=== PATIENT | female | born 1970 | race Caucasian/White ===

== ENCOUNTER 2017-04-29 11:13 | Day surgery (SDC) | payer OTHER ==
[2017-04-23 08:36] VITALS: BMI 21.5
[~2017-04-29 11:13] MED LIST: DEXAMETHASONE SOD PHOSPHATE 10 MG/ML 1 ML VIAL IV ONE; HYDROmorphone 1 MG/ML 1 ML SYRINGE IVP PRN; LACTATED RINGERS 1,000 ML IV SCH; LIDOCAINE 1% 20 ML VIAL (10MG/ML) FOR IV START INTRADERMA PRN; MIDAZOLAM 2 MG/2 ML VIAL IV PRN; ONDANSETRON 4 MG/2 ML VIAL IVP ONE; Pre Op ABX Message 1 EACH MISC MISCELLANE ONE; SCOPOLAMINE 1.5MG/72HR PATCH TRANSDERM ONE
[2017-04-29 11:50] VITALS: RESP 16; TEMP 99.2
[2017-04-29] MEDS ORDERED: PROPOFOL 10 MG/ML 20 ML VIAL IV ONE (12:56)
[2017-04-29] MEDS ORDERED: MIDAZOLAM 2 MG/2 ML VIAL ONE (12:56)
[2017-04-29] MEDS ORDERED: fentaNYL (PF) 50 MCG/ML 2 ML AMP ONE (12:56)
[2017-04-29] MEDS ORDERED: BUPIVACAINE (PF) 0.5% 30 ML VIAL SQ ONE (13:03)
[2017-04-29] MEDS ORDERED: LIDOCAINE 2% INJ 20 MG/ML SQ ONE (13:03)
[2017-04-29 14:06] VITALS: BP 113/76; PULSE 53
--- NOTE | 2017-05-01 10:56 | OP ---
DATE OF SURGERY: 04/29/17 PREOPERATIVE DIAGNOSIS: Right carpal tunnel syndrome. POSTOPERATIVE DIAGNOSIS: Right carpal tunnel syndrome. OPERATION: Open carpal tunnel release. DESCRIPTION OF PROCEDURE: The patient was taken to the Operative suite where a sedation was administered by the Department of Anesthesia. I then performed a local injection along the line of the incision with a combination of Marcaine and Xylocaine both without Epinephrine. The hand was then prepped and draped in the usual manner. The arm was elevated , exsanguinated and the cuff was inflated to 250 mm of mercury. A longitudinal incision was made along the ring finger ray distal to the wrist crease. Dissection was taken through the skin and subcutaneous tissue, initially sharp through the skin and then blunt though the subcutaneous tissue to ensure protection of any potential terminal transverse branches of the palmar cutaneous nerve. The palmar fascia was then incised under direct vision longitudinally exposing the transverse carpal ligament. The transverse carpal ligament also was incised under direct vision. The dissection was then continued proximally beneath the skin under direct vision to release the distal forearm fascia. The median nerve was then reflected free of tenosynovium to ensure no adhesions. The tourniquet was then released. The wound was then irrigated and the skin was closed with a running 5-0 Nylon suture. A soft bulky dressing was applied including a volar plaster splint holding the wrist in a neutral slightly extended position. The patient was taken to the Recovery Room in satisfactory condition. KENROY
== END 2017-04-29 14:29 | disposition home or self-care (01) ==
LOC: OR 11:13
PROVIDERS: ATTEND Orthopaedic Surgery Hand Surgery
DX: G56.01 Carpal tunnel syndrome, right upper limb (principal); F17.200 Nicotine dependence, unspecified, uncomplicated; F32.9 Major depressive disorder, single episode, unspecified; Z79.899 Other long term (current) drug therapy; Z79.1 Long term (current) use of non-steroidal anti-inflammatories (NSAID)
CPT/HCPCS: 81025; 64721; J2001; J2250; J1100; J2405; J3010; J2704

== ENCOUNTER 2018-08-23 08:55 | Emergency (ER) | payer OTHER ==
[2018-08-23 09:00] VITALS: BP 136/85; PULSE 89; RESP 16; TEMP 98.2
--- NOTE | 2018-08-23 09:45 | ED ---
General Adult HPI - General Chief complaint: Extremity Injury, Upper Stated complaint: pain & bump on hand Time Seen by Provider: 08/23/18 09:03 Source: patient, RN notes reviewed Mode of arrival: ambulatory Limitations: no limitations - History of Present Illness Initial comments: Patient 47-year-old female presented to the emergency room today with a chief complaint of injury to the left index finger. 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 She states she's also noticed that there seems to be a bump to the posterior aspect of the left wrist. States is her is nontender. She denies any tenderness. She's states she is able to passively flex at the PIP joint but she is unable to hold it there. She states she cannot make a fist. Patient denies any other complaints or symptoms. Patient denies any recent fever, chills, shortness of breath, chest pain, back pain, abdominal pain, nausea or vomiting, numbness or tingling , headache, visual change, or any other complaint. - Related Data Home Medications Medication Instructions Recorded Confirmed ALPRAZolam [Xanax] 0.25 mg PO DAILY PRN 04/23/17 04/29/17 PARoxetine [Paxil] 20 mg PO DAILY 04/23/17 04/29/17 Allergies Allergy/AdvReac Type Severity Reaction Status Date / Time No Known Allergies Allergy Verified 08/23/18 09:00 Review of Systems ROS Statement: Those systems with pertinent positive or pertinent negative responses have been documented in the HPI. ROS Other: All systems not noted in ROS Statement are negative. Past Medical History Past Medical History: No Reported History History of Any Multi-Drug Resistant Organisms: None Reported Past Surgical History: Tonsillectomy Past Anesthesia/Blood Transfusion Reactions: No Reported Reaction Past Psychological History: Anxiety, Depression, Panic Disorder Smoking Status: Current every day smoker Past Alcohol Use History: None Reported Past Drug Use History: Marijuana - Past Family History Father Family Medical History: Cancer Additional Family Medical History / Comment(s): prostate General Exam - General Exam Comments Initial Comments: General: The patient is awake and alert, in no distress, and does not appear acutely ill. Neck: The neck is supple, there is no tenderness or JVD. Musculoskeletal: Patient does have slight flexion down at the DIP joint of the second digit of the left hand. Patient is unable to flex at the PIP joint. She does have passive range of motion in this area. Sensations are intact. Pulses plus. There is mild swelling seen at the distal radius. No bony tenderness. Full range of motion of the wrist, elbow. Neurological: A&O x 3. CN II-XII intact, There are no obvious motor or sensory deficits. Coordination appears grossly intact. Speech is normal. Skin: Skin is warm and dry and no rashes or lesions are noted. Psychiatric: Normal mood and affect. Limitations: no limitations Course Vital Signs 08/23/18 08:57 Temperature 98.2 F Pulse Rate 89 Respiratory 16 Rate Blood Pressure 136/85 O2 Sat by Pulse 99 Oximetry Medical Decision Making - Medical Decision Making Patient has been splinted in a finger splint in extension. Patient is advised to leave the splint in place. Advised that when she takes it off.to flex. Advised to follow-up with orthopedics over the next 2 days. Advised to rinse for any other concerns. Disposition Clinical Impression: Tendon injury Disposition: HOME SELF-CARE Condition: Good Instructions: Tendon Repair (DC) Additional Instructions: Please follow-up orthopedics over the next 2 days. Please leave splint in place as discussed when taken off cannot flex the finger. Please return to emergency room for any other concerns. Is patient prescribed a controlled substance at d/c from ED?: No Referrals: Ankit Oconnor MD [Primary Care Provider] - 1-2 days Mauri Lazaro MD [STAFF PHYSICIAN] - 1-2 days Time of Disposition: 10:06
--- NOTE | 2018-08-23 09:49 | XR ---
EXAMINATION TYPE: XR hand complete LT DATE OF EXAM: 08/23/2018 CLINICAL HISTORY: Laceration injury with pain. TECHNIQUE: Frontal, lateral and oblique images of the left hand are obtained. COMPARISON: None. FINDINGS: There is no acute fracture/dislocation evident in the left hand. The joint spaces in the l eft hand appear within normal limits. The overlying soft tissue appears unremarkable. IMPRESSION: There is no acute fracture or dislocation in the left hand.
== END 2018-08-23 10:29 | disposition home or self-care (01) ==
LOC: EC 08:55
DX: S66.101A Unspecified injury of flexor muscle, fascia and tendon of left index finger at wrist and hand level, initial encounter (principal); F17.200 Nicotine dependence, unspecified, uncomplicated; F41.0 Panic disorder [episodic paroxysmal anxiety]; F32.9 Major depressive disorder, single episode, unspecified; Z79.899 Other long term (current) drug therapy; X50.9XXA Other and unspecified overexertion or strenuous movements or postures, initial encounter
CPT/HCPCS: 99283

== ENCOUNTER 2018-12-20 10:03 | Emergency (ER) | payer OTHER ==
[2018-12-20 10:20] VITALS: RESP 18; TEMP 98.6
--- NOTE | 2018-12-20 10:40 | ED ---
General Adult HPI - General Chief complaint: Extremity Problem,Nontraumatic Stated complaint: Ankle/leg injury Time Seen by Provider: 12/20/18 10:22 Source: patient, RN notes reviewed Mode of arrival: ambulatory Limitations: no limitations - History of Present Illness Initial comments: 47-year-old female presents to the emergency department for a chief complaint of right heel pain 2 weeks. Patient states this seems to be worsening patient states it is in the back of her right heel. Patient states it hurts when she stands up on her toes. Denies pain on the plantar aspect of her right heel It also hurts when she walks. Patient denies fevers or chills. She denies redness. She denies calf pain. Patient has no other complaints at this time in cluding shortness of breath, chest pain, abdominal pain, nausea or vomiting, headache, or visual changes. - Related Data Home Medications Medication Instructions Recorded Confirmed PARoxetine [Paxil] 20 mg PO DAILY 04/23/17 12/20/18 Ibuprofen [Advil] 800 mg PO Q8HR PRN 12/20/18 12/20/18 Previous Rx's Medication Instructions Recorded Ibuprofen [Motrin] 600 mg PO Q8HR PRN #20 tab 12/20/18 Allergies Allergy/AdvReac Type Severity Reaction Status Date / Time No Known Allergies Allergy Verified 12/20/18 11:14 Review of Systems ROS Statement: Those systems with pertinent positive or pertinent negative responses have been documented in the HPI. ROS Other: All systems not noted in ROS Statement are negative. Past Medical History Past Medical History: No Reported History History of Any Multi-Drug Resistant Organisms: None Reported Past Surgical History: Tonsillectomy Past Anesthesia/Blood Transfusion Reactions: No Reported Reaction Past Psychological History: Anxiety, Depression, Panic Disorder Smoking Status: Current every day smoker Past Alcohol Use History: None Reported Past Drug Use History: Marijuana - Past Family History Father Family Medical History: Cancer Additional Family Medical History / Comment(s): prostate General Exam Limitations: no limitations General appearance: alert, in no apparent distress Head exam: Present: atraumatic, normocephalic, normal inspection Eye exam: Present: normal appearance, PERRL, EOMI. Absent: scleral icterus, conjunctival injection, periorbital swelling ENT exam: Present: normal exam, mucous membranes moist Neck exam: Present: normal inspection, full ROM. Absent: tenderness, meningismus, lymphadenopathy Respiratory exam: Present: normal lung sounds bilaterally. Absent: respiratory distress, wheezes, rales, rhonchi, stridor Cardiovascular Exam: Present: regular rate, normal rhythm, normal heart sounds. Absent: systolic murmur, diastolic murmur, rubs, gallop, clicks Extremities exam: Present: full ROM (Full range of motion of the right knee and right heel the patient does have some pain in the right heel when plantar flexing the right foot), tenderness (Tenderness to the posterior right heel, no tenderness in the knee or calf), normal capillary refill (Capillary refill less than 2 seconds, DP pulse 2+ in the right lower extremity), other (Physician intact in the right lower extremity. Normal Kenney's sign.). Absent: joint swelling (No edema or erythema noted of the right heel), calf tenderness (Negative Homans sign, no erythema edema or ecchymosis noted of the right calf. No increased circumference of the right calf.) Neurological exam: Present: alert, oriented X3, CN II-XII intact Psychiatric exam: Present: normal affect, normal mood Course Vital Signs 12/20/18 12/20/18 10:18 12:14 Temperature 98.6 F Pulse Rate 90 86 Respiratory 18 18 Rate Blood Pressure 111/66 134/100 O2 Sat by Pulse 99 98 Oximetry Medical Decision Making - Medical Decision Making 47-year-old female presents to the emergency department for chief complaint of right heel pain. This has been ongoing for the past 2 weeks. Pain. Full range motion of the right knee and right foot. Patient does have tenderness noted to the posterior right heel where Achilles tendon inserts. Patient has pain with ambulating on toes in the heel. X-rays are negative. At this time it is likely that patient has a tendinitis. However I did discuss returning if she starts to have calf pain or swelling. At this time patient will follow up with orthopedics. Discussed Motrin and Tylenol for pain. Discussed using crutches as needed as walking is painful. Discussed returning here if she has any worsening symptoms. Referral was written on patient's discharge paperwork as it was printed before referral was put on computer. Disposition Clinical Impression: Ankle pain, left Disposition: HOME SELF-CARE Condition: Good Instructions (If sedation given, give patient instructions): Tendinitis (ED) Additional Instructions: Please take Motrin and Tylenol for pain. Please ice the area. Please use crutches as needed. Follow-up with orthopedics in one to 2 days. Please return here to the emergency department if he have worsening symptoms. Prescriptions: Ibuprofen [Motrin] 600 mg PO Q8HR PRN #20 tab PRN Reason: Pain Is patient prescribed a controlled substance at d/c from ED?: No Referrals: Ankit Oconnor MD [Primary Care Provider] - 1-2 days Jules Rajan DO [Medical Doctor] - 1-2 days Time of Disposition: 11:49
--- NOTE | 2018-12-20 11:01 | XR ---
EXAMINATION TYPE: XR foot complete RT , 3 VIEWS DATE OF EXAM ORDERED: 12/20/2018 HISTORY: Pain. COMPARISON: None. FINDINGS: No fracture, dislocation or other acute osseous lesion is seen. IMPRESSION: NO ACUTE OSSEOUS LESION.
[2018-12-20 12:21] VITALS: BP 134/100; PULSE 86
== END 2018-12-20 12:15 | disposition home or self-care (01) ==
LOC: EC 10:03
DX: M25.572 Pain in left ankle and joints of left foot (principal); M79.671 Pain in right foot; F32.9 Major depressive disorder, single episode, unspecified; F41.0 Panic disorder [episodic paroxysmal anxiety]; F17.200 Nicotine dependence, unspecified, uncomplicated; Z79.899 Other long term (current) drug therapy
CPT/HCPCS: 99283

== ENCOUNTER → 2019-11-06 | Outpatient (CLI) | payer OTHER ==
--- NOTE | 2019-11-06 12:00 | XR ---
EXAM TYPE: LUMBAR SPINE X RAY SERIES COMPARISON: NONE HISTORY: Pain TECHNIQUE: 4 views are submitted. FINDINGS: Alignment is anatomic. The pedicles are intact. The transverse processes are intact. There is no s pondylolysis or spondylolisthesis. Curvature the spine with multilevel degenerative disc disease. Va scular calcifications noted. Severe degenerative disc disease L5-S1 with marked facet arthropathy at levels L3-S1. Moderate degenerative change at remaining levels. IMPRESSION: 1. Multilevel degenerative disc disease and facet arthropathy most marked at L5-S1..
== END | disposition home or self-care (01) ==
LOC: RADXRMAIN 11:29
PROVIDERS: ATTEND Internal Medicine
DX: M51.37 Other intervertebral disc degeneration, lumbosacral region (principal); M46.97 Unspecified inflammatory spondylopathy, lumbosacral region
CPT/HCPCS: 72110

== ENCOUNTER → 2019-12-15 | Outpatient (CLI) | payer OTHER ==
--- NOTE | 2019-12-15 13:52 | MR ---
Left wrist MRI HISTORY: Rheumatoid arthritis, unable to straighten left thumb Multiplanar multisequence imaging through the left wrist Correlation to left hand 08/23/2018 There are multiple abnormal signal foci throughout the carpal bones. T1 intermediate, T2 increased si gnal present with bone erosions and geode formation, there is associated joint space loss of the radi ocarpal joint, second carpometacarpal, intercarpal joints. There is synovial thickening present. Larg e geode and erosion present in the distal radius, smaller geode and erosion present at the level of t he ulnar styloid. The triangular fibrocartilage is not well-defined. Suspect scapholunate ligament di sruption, suggestion of joint widening on coronal image #13 and 14 at the T1 data set. Flexor and ext ensor tendons are intact, fluid signal courses along the extensor tendons. No evident fracture or dis location. IMPRESSION: Findings compatible with rheumatoid arthritis
== END | disposition home or self-care (01) ==
LOC: RADMRIMAIN 07:10
PROVIDERS: ATTEND Physician Assistant
DX: M21.332 Wrist drop, left wrist (principal)

== ENCOUNTER → 2022-07-27 | Outpatient (CLI) | payer MEDICARE, OTHER ==
--- NOTE | 2022-07-27 14:46 | CTL ---
EXAMINATION TYPE: CT Low Dose Lung DATE OF EXAM ORDERED: 07/27/2022 HISTORY:. Lung cancer screening CT DLP: 60.[address] CTDI: 1.8 mGy Automated exposure control for dose reduction was used. Comparison: None TECHNIQUE: Low dose computed tomography scan was performed through the chest at 1 mm thick sections a nd reconstructed images in multiple planes at 1 mm and [address] DIAGNOSTIC QUALITY: Satisfactory FINDINGS: The lungs are clear of consolidative or interstitial density. There are no emphysematous changes. There is no suspicious lung mass or nodule. There is no pleural effusion, pleural thickening or pneumothorax. There is no mediastinal, hilar or axillary adenopathy. The great vessels chest are normal. The osseous structures are intact. Limited scanning the upper abdomen reveals no gross abnormality. IMPRESSION: 1. Lung RADS category 1 negative. 2. Continued routine screening yearly intervals if this is a high risk patient. 3. No acute cardiopulmonary disease.
== END | disposition home or self-care (01) ==
LOC: RADCTMAIN 13:57
PROVIDERS: ATTEND Internal Medicine
DX: Z12.2 Encounter for screening for malignant neoplasm of respiratory organs (principal); Z87.891 Personal history of nicotine dependence
CPT/HCPCS: 71271

== ENCOUNTER → 2023-10-25 | Outpatient (CLI) | payer MEDICARE, OTHER ==
--- NOTE | 2023-10-25 11:58 | MM ---
Reason for Exam: Additional evaluation requested from prior study. Last screening mammogram was performed 4 month(s) ago. Patient History: Menarche at age 9. First Full-Term at age 17. Postmenopausal. Risk Values: Debra 5 year model risk: 0.9%. NCI Lifetime model risk: 6.8%. Tissue Density: Left: There are scattered fibroglandular densities. Findings: Analyzed By CAD. Underlying nodularity appears circumscribed on 3-D spot compression and 3-D lateral views. The nodularity is located predominantly in the superior aspect of the breast and is isodense to low density. Some faint regional calcifications are also noted. Further ultrasound evaluation is recommended. Overall Assessment: Incomplete: need additional imaging evaluation, BI-RAD 0 Management: Diagnostic Breast Ultrasound of the left breast. Superior half. Electronically signed and approved by: Milo Ortez M.D. Radiologist
--- NOTE | 2023-10-25 13:36 | USB ---
Reason for Exam: Additional evaluation requested from abnormal screening. Patient History: Menarche at age 9. First Full-Term at age 17. Postmenopausal. Risk Values: Debra 5 year model risk: 0.9%. NCI Lifetime model risk: 6.8%. Technique: Method: Targeted. Prior Study Comparison: 05/31/2023 Bilateral MG 3D screening mammo w/cad, [facility]. Findings: The upper section of the breast of the left breast, the axilla of the left breast and the retroareolar of the left breast were scanned. Targeted ultrasound superior half of the left breast from 9:00 to 3:00 including the subareolar region and axilla. 1. At the 1:00 position, 3 cm from the nipple, there is a round, nonspecific, hypoechoic lesion with posterior through-transmission measuring 6 x 6 x 6 mm. This could represent a circumscribed solid mass or debris-filled cyst and six-month follow-up is recommended. 2. At the 2:00 position, 4 cm from the nipple, tiny benign 3 mm cyst. 3. At the 3:00 position, 4 cm from the nipple, there is a small benign 4 mm cyst. 4. No other solid or cystic mass or axillary lymphadenopathy. Overall Assessment: Probably benign, BI-RAD 3 Management: Diagnostic Mammogram of the left breast in 6 months. Diagnostic Breast Ultrasound of the left breast in 6 months. A clinical breast exam by your physician is recommended on an annual basis and results should be correlated with mammographic findings. This exam should not preclude additional follow-up of suspicious palpable abnormalities. Results were given to the patient verbally at the time of exam. Electronically signed and approved by: Milo Ortez M.D. Radiologist
== END | disposition home or self-care (01) ==
LOC: RADMAMWWP 10:33
PROVIDERS: ATTEND Internal Medicine
DX: R92.322 Mammographic fibroglandular density, left breast (principal); Z78.0 Asymptomatic menopausal state
CPT/HCPCS: 77065; 76642; G0279; 77061

== ENCOUNTER → 2024-05-07 | Outpatient (CLI) | payer MEDICARE, OTHER ==
--- NOTE | 2024-05-28 14:43 | MR ---
Patient: Elma Gomez L Ordering Physician: Unknown, Unknown ID: [id number] Phone, Pager: Phone: N/A P ager: N/A : 1970 Age/Gender: 53Y, F Primary Location: N/A Procedure: MR shoulder LT wo con [facility] Date: 05/07/2024 6:52:15 AM Order #: N/[id number] EXAMINATION TYPE: MR shoulder LT wo con DATE OF EXAM: 05/07/2024 COMPARISON: None. HISTORY: Left shoulder pain. Tendinitis of the left rotator cuff. TECHNIQUE: Multiplanar, multisequence imaging of the left shoulder is performed without contrast. FINDINGS: Rotator Cuff: Intact infraspinatus tendon. Increased signal in these supraspinatus tendon. Intact sub scapularis tendon. Rotator cuff muscle bulk is preserved. Acromioclavicular Joint: Moderate to severe narrowing with mild to moderate spurring and capsular hyp ertrophy. Glenohumeral Joint: Small joint effusion. No significant spurring. Labrum: The labrum appears grossly intact given limitation of non-arthrogram study. Biceps Tendon: The long head of biceps is in normal location within bicipital groove. Bone marrow signal: No focal abnormal marrow signal is appreciated. Other: No additional significant abnormality is appreciated. IMPRESSION: Tendinosis/partial tearing of the supraspinatus tendon with AC joint arthropathy is noted.
== END | disposition home or self-care (01) ==
LOC: RADMRIMAIN 07:41
PROVIDERS: ATTEND Internal Medicine Rheumatology
DX: M67.814 Other specified disorders of tendon, left shoulder (principal); M19.012 Primary osteoarthritis, left shoulder; M75.112 Incomplete rotator cuff tear or rupture of left shoulder, not specified as traumatic

== ENCOUNTER 2024-10-22 10:29 | Day surgery (SDC) | payer MEDICARE, OTHER ==
[2024-10-21 09:52] VITALS: BMI 22.4
[~2024-10-22 10:29] MED LIST changes: -DEXAMETHASONE SOD PHOSPHATE 10 MG/ML 1 ML VIAL IV ONE; -HYDROmorphone 1 MG/ML 1 ML SYRINGE IVP PRN; +LIDOCAINE 1% (10MG/ML) FOR IV START INTRADERMA PRN; -LIDOCAINE 1% 20 ML VIAL (10MG/ML) FOR IV START INTRADERMA PRN; -MIDAZOLAM 2 MG/2 ML VIAL IV PRN; -ONDANSETRON 4 MG/2 ML VIAL IVP ONE; -Pre Op ABX Message 1 EACH MISC MISCELLANE ONE; -SCOPOLAMINE 1.5MG/72HR PATCH TRANSDERM ONE
[2024-10-22 11:15] VITALS: TEMP 97.2
[2024-10-22] MEDS: IV FLUID CONTINUATION 1,000 ML IV ONE (11:21)
[2024-10-22] MEDS: LACTATED RINGERS 1,000 ML IV SCH (11:22)
[2024-10-22] MEDS: ATROPINE SULFATE 0.4 MG/ML 1 ML VIAL IM ONE (11:23)
[2024-10-22] MEDS ORDERED: PROPOFOL 10 MG/ML 20 ML VIAL IV ONE (11:30)
[2024-10-22] MEDS ORDERED: LIDOCAINE 2% (PF) 20 MG/ML 5 ML VIAL ONE (11:30)
[2024-10-22] MEDS ORDERED: MIDAZOLAM 2 MG/2 ML VIAL ONE (11:30)
[2024-10-22] MEDS: LIDOCAINE 2% INJ 20 MG/ML INTRATRACH ONE (11:40)
[2024-10-22 12:28] VITALS: RESP 18
[2024-10-22 12:31] VITALS: BP 114/70; PULSE 86
--- NOTE | 2024-10-22 12:44 | PCN ---
PROCEDURE NOTE PROCEDURES PERFORMED: Bronchoscopy, airway examination, therapeutic lavage, BAL right middle lobe. PREOPERATIVE DIAGNOSIS: Suspected tracheal lesion. POSTOPERATIVE DIAGNOSIS: Suspected tracheal lesion. OPERATORS: Dr. Fong and Dr. Keith. There was informed consent and universal timeout. The patient's procedure took place in [facility] room #1. [place]HES[place] PROVIDED[place] [facility] which is monitored anesthesia care. DESCRIPTION OF PROCEDURE: After the patient was adequately sedated and being fully monitored, the bronchoscope was inserted through the left nostril. It passed through the left nasopharynx into the oropharynx. The hypopharynx was identified and topicalized. The hypopharyngeal structures, including anterior commissure, true cords, false cords, arytenoids, piriform sinuses, right and left, vallecula, and epiglottis, all appeared normal. Next, after topicalization, the bronchoscope was pushed through the glottic opening into the trachea. The trachea was inspected closely. No distinct lesion was noted. The tracheal rings all looked normal, although the most distal tracheal rings were a bit more prominent and maybe that was what they were seeing on the CT scan. The tracheal kiki was sharp. The right and left mainstem were topicalized. The right upper lobe and its 3 segments right middle lobe and its 2 segments, right lower lobe and its 5 segments, left upper lobe proper and its 2 segments, lingula and its 2 segments, and left lower lobe and its 4 segments were all identified. They were all relatively normal. Mucosa was normal. We did wedge into the right middle lobe and did a formal BAL. After the BAL was done, we went back and looked very closely at the trachea again starting at the tracheal kiki, moving more proximally. Again, no distinct lesion was noted. The patient tolerated the procedure well. The BAL fluid was sent to the laboratory for analysis. I am sure it will come out negative. It will be sent for cytology and microbiology. The bronchoscope was withdrawn and the patient will be recovered. There was no immediate complication. The patient did very well through the procedure with stable vital signs. MMODL / IJN: [id number] /
[2024-10-22 21:42] LABS: Appearance,BF Cloudy (Clear); RBC, Body Fluid 325 /UL (0-2000)
[2024-10-23 10:41] LABS: Nucleated Cells, Body Fluid 1140 /UL
== END 2024-10-22 13:02 | disposition home or self-care (01) ==
LOC: ORWHC2ENDO 10:29
PROVIDERS: ATTEND Internal Medicine Critical Care Medicine
DX: D38.1 Neoplasm of uncertain behavior of trachea, bronchus and lung (principal); I10 Essential (primary) hypertension; E78.5 Hyperlipidemia, unspecified; M06.9 Rheumatoid arthritis, unspecified; F41.9 Anxiety disorder, unspecified; F32.9 Major depressive disorder, single episode, unspecified; F17.210 Nicotine dependence, cigarettes, uncomplicated; Z79.1 Long term (current) use of non-steroidal anti-inflammatories (NSAID); Z79.02 Long term (current) use of antithrombotics/antiplatelets; Z79.899 Other long term (current) drug therapy
CPT/HCPCS: 87798 ×3; 87496; 87498; 87529; 88108; 88305; 89050; 87502; 87634; 87070; 87205; 87116; 87102; 87206; 87635; 31624; J2250; J0461; J2704; J2003 ×2

== ENCOUNTER → 2024-12-30 | Outpatient (CLI) | payer MEDICARE, OTHER ==
--- NOTE | 2024-12-30 11:03 | MM ---
Reason for Exam: Additional evaluation requested from prior study. Last mammogram was performed 1 year(s) and 7 month(s) ago. Patient History: Menarche at age 9. First Full-Term at age 17. Postmenopausal. Risk Values: Debra 5 year model risk: 0.9%. NCI Lifetime model risk: 6.6%. Prior Study Comparison: 05/31/2023 Bilateral MG 3D screening mammo w/cad, [facility]. 10/25/2023 Left MG 3D work up w/cad , [facility]. 10/25/2023 Left US breast workup limited , [facility]. Tissue Density: The breasts are heterogeneously dense, which may obscure small masses. Findings: Analyzed By CAD. Nodular density at the left 1:00 position persists. Repeat ultrasound is advised. Otherwise no distinct nodules or masses present. No suspicious microcalcifications evident. Overall Assessment: Incomplete: need additional imaging evaluation, BI-RAD 0 Management: Diagnostic Breast Ultrasound of the left breast. . Results were given to the patient verbally at the time of exam. Patient should continue monthly self-breast exams. A clinical breast exam by your physician is recommended on an annual basis. This exam should not preclude additional follow-up of suspicious palpable abnormalities. Note on Debra scores and lifetime risk: 1. A Debra score greater than 3% is considered moderate risk. If this is the case, consider specialist referral to assess eligibility for a risk reducing agent. 2. If overall lifetime risk for the development of breast cancer is 20% or higher, the patient may qualify for future screening with alternating mammogram and breast MRI. [facility], , 12/30/2024 11:00 AM. Electronically signed and approved by: Caleb Hallman M.D. Radiologis
--- NOTE | 2024-12-30 11:26 | USB ---
Reason for Exam: Follow-up at short interval from prior study. Patient History: Menarche at age 9. First Full-Term at age 17. Postmenopausal. Risk Values: Debra 5 year model risk: 0.9%. NCI Lifetime model risk: 6.6%. Prior Study Comparison: 05/31/2023 Bilateral MG 3D screening mammo w/cad, [facility]. 10/25/2023 Left MG 3D work up w/cad , [facility]. 10/25/2023 Left US breast workup limited , [facility]. Findings: The axilla of the left breast and the retroareolar of the left breast were scanned. At the left 1:00 position there is a small hypoechoic lesion which is well-circumscribed and demonstrates a peripheral calcification. Current measurement is 5 x 5 mm versus 6 x 6 mm previously. Continued six-month follow-up ultrasound is recommended. Overall Assessment: Probably benign, BI-RAD 3 Management: Diagnostic Breast Ultrasound of the left breast in 6 months. A clinical breast exam by your physician is recommended on an annual basis and results should be correlated with mammographic findings. This exam should not preclude additional follow-up of suspicious palpable abnormalities. Results were given to the patient verbally at the time of exam. [facility], , 12/30/2024 11:17 AM. Electronically signed and approved by: Caleb Hallman M.D. Radiologis
== END | disposition home or self-care (01) ==
LOC: RADMAMWWP 10:27
PROVIDERS: ATTEND Internal Medicine
DX: R92.8 Other abnormal and inconclusive findings on diagnostic imaging of breast (principal); R92.333 Mammographic heterogeneous density, bilateral breasts; Z78.0 Asymptomatic menopausal state
CPT/HCPCS: 77066; 76642; G0279; 77062